=== PATIENT | female | born 1955 | race Caucasian/White ===

== ENCOUNTER 2017-12-19 07:54 | Outpatient (CLI) ==
--- NOTE | 2017-12-19 08:58 | US ---
EXAM: Bilateral carotid artery Doppler History: Dizziness. Technique: Multiple sonographic images through the bilateral internal carotid arteries were obtained . Color duplex Doppler was used to interrogate vascular flow. Findings: The right ICA peak systolic velocity is within normal limits measuring 0.60 meters per second. The r ight ICA/cca PSV ratio is normal at 0.80. The right vertebral artery is patent and demonstrates anteg rade flow. Figueredo scale images demonstrate mild plaque buildup within the right internal carotid arter y. The left ICA peak systolic velocity is within normal limits measuring 0.60 meters per second. The le ft ICA/cca PSV ratio is normal at 0.90. The left vertebral artery is patent and demonstrates antegra de flow. Figueredo scale images demonstrate mild plaque buildup within the left internal carotid artery Impression: No significant hemodynamic stenosis of the bilateral internal carotid arteries
--- NOTE | 2017-12-19 10:16 | CT ---
EXAM: CT Head with and without contrast HISTORY: Dizziness, fall COMPARISON: None TECHNIQUE: CT head performed with and without contrast FINDINGS: There is no mass effect, midline shift, or intracranial hemmorhage. Ramos white differenti ation is preserved. There is no extra-axial collection. The ventricles, sulci, and basal cisterns a re patent and symmetric. There is mild chronic ischemic disease of the white matter and cerebral vol ume loss. There is no depressed calvarial fracture. The mastoid air cells are clear. There is mild mucosal thickening right sphenoid sinus and mild to moderate mucosal thickening left sphenoid sinus w ith probable fluid level There are intracranial atherosclerotic calcifications. No abnormal area of e nhancement. Small left parietal scalp hematoma. IMPRESSION: 1. No acute intracranial abnormality. No abnormal area of enhancement. 2. Mild chronic ischemic disease of the white matter and cerebral volume loss. 3. Small left parietal scalp hematoma. 4. Sinusitis with probable fluid level, suggesting acute on chronic sinusitis.
== END 2017-12-19 07:55 | disposition home or self-care (01) ==
LOC: RAD 07:54
PROVIDERS: ATTEND Internal Medicine
DX: R42 Dizziness and giddiness (principal); W19.XXXA Unspecified fall, initial encounter
CPT/HCPCS: 36415; 82565

== ENCOUNTER 2017-12-21 06:35 | Outpatient (CLI) | payer OTHER ==
--- NOTE | 2017-12-25 12:00 | ECHO2D ---
Date of Exam: 12/21/17 Ordering Physician: DR. KELSEY FREIRE Room #: OP Reason for Echo: CARDIOMEGALY, MURMUR, DM2 M-Mode Normal Adult Results LV Dimensions Normal Adult Results AoV Opening excursions >1.6 >1.6 LVEDD-base- 3.5-5.8 4.0 Ao root dimensions 2.0-3.7 3.2 LVESD-base- 3.1-4.6 L. Atrium dimensions 1.9-3.8 5.0 Post. Wall thickness 0.8-1.1 1.1 IV septum (thickness) 0.7-1.2 1.2 Post. Wall excursion 0.72-1.3 NORMAL Septal motion NORMAL Systolic motion R. Ventricular cavity 1.5-2.0 NORMAL LVEF 60% 69% Paradoxical septal wall motion NORMAL 2-D : 2-D M Mode Echocardiogram was performed using apical four chamber and left parasternal long and short axis views. Mitral, tricuspid and aortic valves appear to be normal. Contractility of the left ventricle seems to be normal, so is the cavity size. Enlarged Left atrial cavity. Aortic root appears to be normal. There is no pericardial effusion. There is no thrombus noted in the left ventricular or left aortic cavity. No mitral valve prolapse noted. M-MODE: MV: NORMAL AV: NORMAL TV: NORMAL PV: CHAMBER SIZE: ENLARGED LEFT ATRIAL CAVITY WALL MOTION: NORMAL PERICARDIUM: NORMAL INTERPRETATION: 1. BORDERLINE LEFT VENTRICULAR HYPERTROPHY 2. ENLARGED LEFT ATRIAL CAVITY (5.0) 3. NORMAL VALVES 4. NORMAL LEFT VENTRICULAR CONTRACTILITY MTDD
== END 2017-12-21 06:36 | disposition home or self-care (01) ==
LOC: CAR 06:35
PROVIDERS: ATTEND Internal Medicine
DX: R01.1 Cardiac murmur, unspecified (principal)

== ENCOUNTER 2017-12-27 06:40 | Outpatient (CLI) | payer OTHER ==
[2017-12-27] MEDS ORDERED: DOBUTAMINE 500 MG-D5W 250 ML 250 ML IV ONE (07:06)
[2017-12-27] MEDS ORDERED: ATROPINE SULFATE PFS ONE (07:06)
--- NOTE | 2017-12-28 13:50 | ECHOSTRESS ---
Date of Exam: 12/27/17 Ordering Physician: DR. KELSEY FREIRE Reason for Echo: HTN, MURMUR, DOBUTAMINE STRESS --NO ISCHEMIA M-Mode Normal Adult Results LV Dimensions Normal Adult Results AoV Opening excursions >1.6 LVEDD-base- 3.5-5.8 Ao root dimensions 2.0-3.7 LVESD-base- 3.1-4.6 L. Atrium dimensions 1.9-3.8 Post. Wall thickness 0.8-1.1 IV septum (thickness) 0.7-1.2 Post. Wall excursion 0.72-1.3 Septal motion Systolic motion R. Ventricular cavity 1.5-2.0 LVEF 60% Paradoxical septal wall motion 2-D: NORMAL LEFT VENTRICULAR CONTRACTILITY--RESTING AND DURING DOBUTAMINE INFUSION M-MODE: MV: AV: TV: PV: CHAMBER SIZE: WALL MOTION: NORMAL LEFT VENTRICULAR CONTRACTILITY--RESTING AND DURING DOBUTAMINE INFUSION PERICARDIUM: INTERPRETATION: 1. NORMAL LEFT VENTRICULAR CONTRACTILITY--RESTING AND DURING DOBUTAMINE INFUSION MTDD
--- NOTE | 2017-12-28 13:59 | DOBSTECHO ---
Date of Test: 12/27/17 Ordering Physician: DR. KELSEY FREIRE Smoking History: NO Reason for Examination: HYPERTENSION, MURMUR Current Medications: ASPIRIN, METFORMIN, ZOCOR, FENOFIBRATE, RANITIDINE, GLIPIZIDE, LUMIGAN Height: 61" Weight: 176 LBS Target Heart Rate: 135/159 S-T Segment Stage Time HR BPM BP MMHG Rhythm +/- Elevation Depression Comments/ Symptoms Control Sitting 70 BPM 170/72 SR X NONE Dobutamine 250mg/D5W 5cmg/KG/mn 10cmg/KG/mn 3:00 80 168/62 SR X NONE 15cmg/KG/mn 2:00 108 SR X NONE 20cmg/KG/mn 1:31 137 190/58 SR X NONE 25cmg/KG/mn 30cmg/KG/mn 35cmg/KG/mn 40cmg/KG/mn 5 MIN POST INFUSION z 106 176/60 SR X NONE 10 MIN POST INFUSION z 81 SR X NONE DURATION OF INFUSION 6:31 MAXIMUM HEART RATE REACHED 137 BPM Interpretation: 1. NO EVIDENCE OF ISCHEMIA BY ST-T WAVE 2. NO CHEST PAIN OR DISCOMFORT 3. NORMAL LEFT VENTRICLE CONTRACTILITY--RESTING AND WITH DOBUTAMINE INFUSION MTDD
== END 2017-12-27 06:41 | disposition home or self-care (01) ==
LOC: CAR 06:40
PROVIDERS: ATTEND Internal Medicine
DX: R06.02 Shortness of breath (principal); I10 Essential (primary) hypertension; R01.1 Cardiac murmur, unspecified